=== PATIENT | male | born 1990 | race African-American/Black ===

== ENCOUNTER 2016-08-25 11:13 | Emergency (ER) | payer OTHER ==
--- NOTE | ~2016-08-25 | DHC ---
[facility] A Service of [facility] PROGRESS NOTE Patient: SAHIL WIGGINS Date of : 89 Location: [facility] Room: DATE: 10/07/16 Discussion: This note serves to close this chart as of 10/24/2016 due to the closure of this office. A letter of referral sources will be sent to the patient. No further prescriptions or psychiatric services will be provided by this office after 10/24/2016. Plan: X Armani Lozada MD <ELECTRONICALLY SIGNED> 10/15/16 1702 X PHYSICIAN CONTACT NOTE
== END 2016-08-25 13:44 | disposition left against medical advice (07) ==
LOC: CED 11:13
DX: Z53.21 Procedure and treatment not carried out due to patient leaving prior to being seen by health care provider (principal)